=== PATIENT | male | born 1955 | race Caucasian/White ===

== ENCOUNTER 2022-05-10 15:16 | Emergency (ER) | payer MEDICARE, BC ==
[~2022-05-10] VITALS: Ht 180.3 cm; Wt 91.2 kg
--- NOTE | 2022-05-10 15:40 | NUR ---
RECEIVED PT 67 YRS MALE WALKING IN C/O PAIN on right side chest respiration spont and easy no sob or distress restion at this time
--- NOTE | 2022-05-10 15:42 | NUR ---
PT GOT FALL OFF HOURSE AT 1440 PM TODAY
[2022-05-10] MEDS ORDERED: MORPHINE SULFATE INJ 2 MG/ML DISP.SYRIN IV ONE (16:00)
[2022-05-10] MEDS ORDERED: IV NS 0.9% 1,000 ML BAG IV ONE (16:00)
--- NOTE | 2022-05-10 16:15 | NUR ---
TO CT SCAN OF CHEST
[2022-05-10] MEDS ORDERED: MORPHINE SULFATE INJ 2 MG/ML DISP.SYRIN ONE (16:24)
--- NOTE | 2022-05-10 16:35 | NUR ---
PT REFUSED MPRPHIN 2MG DR. SWANSON NOTEFY AND AWARE
[2022-05-10 16:40] LABS: BASOPHILS % (AUTO) 0.4 % (0.0-2.0); EOSINOPHILS % (AUTO) 0.5 % (0.0-6.0); HEMATOCRIT 45 % (39-51); LYMPHOCYTES # (AUTO) 0.7 K/uL (0.8-4.8); LYMPHOCYTES % (AUTO) 6.6 % (20.0-44.0); MEAN CORPUSCULAR HGB CONC 34 g/dl (31.0-36.0); MEAN CORPUSCULAR VOLUME 90 fL (80-96); MONOCYTES # (AUTO) 0.6 K/uL (0.1-1.30); MONOCYTES % (AUTO) 5.9 % (2.0-12.0); NEUTROPHILS # (AUTO) 9.3 K/uL (1.8-8.9); NEUTROPHILS % (AUTO) 86.6 % (43.0-81.0); PLATELET COUNT (AUTO) 175 K/uL (150-450); WHITE BLOOD COUNT (AUTO) 10.8 K/uL (4.3-11.0)
[2022-05-10 16:58] LABS: ALBUMIN 4.1 g/dL (3.4-5.0); BILIRUBIN,DIRECT 0.2 mg/dL (0.0-0.2); BILIRUBIN,TOTAL 0.6 mg/dL (0.2-1.0); CALCIUM, SERUM 9.4 mg/dL (8.5-10.1); CREATININE 1.1 mg/dL (0.6-1.3); POTASSIUM 4.4 mmol/L (3.5-5.1)
--- NOTE | 2022-05-10 17:25 | NUR ---
PT REFUSED MOTRIN 800MG PO DR. SWANSON AWARE PAIN 06/05 CONTOROLED
[2022-05-10] MEDS ORDERED: IBUPROFEN 400 MG TABLET ONE (17:42)
[2022-05-10] MEDS: IBUPROFEN 400 MG TABLET PO ONE ×2 (17:43→17:48)
--- NOTE | 2022-05-10 18:00 | NUR ---
IV removed. Catheter intact and site benign. Pressure and 4x4 applied to site. No bleeding noted.
--- NOTE | 2022-05-10 18:05 | NUR ---
Patient discharged to home in stable condition. Written and verbal after care instructions given. Patient verbalizes understanding of instruction.
[2022-05-10 18:17] VITALS: BP 149/81
== END 2022-05-10 18:20 | disposition home or self-care (01) ==
LOC: ER 15:33
DX: K40.90 Unilateral inguinal hernia, without obstruction or gangrene, not specified as recurrent (principal); Z88.8 Allergy status to other drugs, medicaments and biological substances
CPT/HCPCS: 99285; 74176; 96360; 71100; 73030; 85025; 80048; 83690; 80076; 36415; J7030; J2270